=== PATIENT | female | born 1995 | race African-American/Black ===

== ENCOUNTER 2019-04-09 19:24 | Emergency (ER) | payer OTHER ==
--- NOTE | 2019-04-09 19:48 | PDOC ---
Rapid Medical Evaluation Chief Complaint: Sore Throat Time Seen by Provider: 04/09/19 19:45 Medical Evaluation: Allergies Allergy/AdvReac Type Severity Reaction Status Date / Time No Known Allergies Allergy Verified 10/16/16 18:15 04/09/19 19:46 This patient had a brief in-person evaluation cc: cold symptoms x 2 days non productive coughing sorethroat PE: NAD clear lungs bilaterally hoarseness orders ekg, chest xray This patient will proceed to to [facility] for further evaluation Discharge Disposition - Diagnosis URI (upper respiratory infection) - Referrals - Patient Instructions - Post Discharge Activity
[2019-04-09] MEDS ORDERED: ALBUTEROL SO4 2.5/IPRATROPIUM 0.5 INH SOL 3 ML VIAL.NEB. NEB ONE ×2 (19:49→20:07)
[2019-04-09 19:55] VITALS: BP 108/67; PULSE 63; TEMP 98.4; BMI 26.9
[2019-04-09 20:47] LABS: PH,URINE 6.5 (5.0-8.0); URINE APPEARANCE CLEAR; URINE BILIRUBIN NEGATIVE (NEGATIVE); URINE COLOR YELLOW; URINE GLUCOSE (UA) NEGATIVE (NEGATIVE); URINE KETONE NEGATIVE (NEGATIVE); URINE LEUK ESTERASE NEGATIVE (NEGATIVE); URINE NITRITE NEGATIVE (NEGATIVE); URINE PROTEIN NEGATIVE (NEGATIVE)
[2019-04-09 20:50] LABS: HCG,QUALITATIVE URINE Negative
[2019-04-09] MEDS ORDERED: AZITHROMYCIN 250 MG TABLET PO ONE (22:15)
[2019-04-09] MEDS ORDERED: AZITHROMYCIN 500 MG TABLET ONE (22:21)
--- NOTE | 2019-04-10 12:44 | EKG ---
Test Reason : Blood Pressure : / mmHG Vent. Rate : 057 BPM Atrial Rate : 057 BPM P-R Int : 130 ms QRS Dur : 088 ms QT Int : 420 ms P-R-T Axes : 062 075 061 degrees QTc Int : 408 ms POOR DATA QUALITY, INTERPRETATION MAY BE ADVERSELY AFFECTED SINUS BRADYCARDIA OTHERWISE NORMAL ECG WHEN COMPARED WITH ECG OF 03-JUN-2015 13:19, NONSPECIFIC T WAVE ABNORMALITY NO LONGER EVIDENT IN ANTERIOR LEADS Confirmed by Werner Rivera MD ([id number]) on 04/10/2019 12:44:13 PM Referred By: Confirmed By:Werner Rivera MD
== END 2019-04-09 23:02 | disposition home or self-care (01) ==
LOC: JERFT 19:24
PROC: 3E0F7GC Introduction of Other Therapeutic Substance into Respiratory Tract, Via Natural or Artificial Opening (ICD-10-PCS; principal; 2019-04-09)
DX: J06.9 Acute upper respiratory infection, unspecified (principal); N76.0 Acute vaginitis; B96.89 Other specified bacterial agents as the cause of diseases classified elsewhere
CPT/HCPCS: 36415; 71046-TC-FY; 81003; 84703; 87070; 87075; 87077; 87086; 87186; 87205; 87491; 87591; 87880; 93005; 93010; 99282-25

== ENCOUNTER 2023-02-13 02:50 | Inpatient (IN) | payer OTHER ==
[2023-02-13] MEDS: ELECTROLYTE-148 SOLN 1,000 ML IV SCH ×3 (04:50→22:00)
[2023-02-13] MEDS ORDERED: AMPICILLIN - 2 GM in SODIUM CHLORIDE 100 ML IVPB ONE (05:00)
[2023-02-13 05:17] VITALS: BMI 34.2
[2023-02-13 05:18] LABS: BASO % 0.3 % (0-2.0); EOS % 0.2 % (0-4.5); HEMATOCRIT 34.2 % (32.4-45.2); HEMOGLOBIN 12.2 GM/dL (10.7-15.3); LYMPH % 9.5 % (8-40); MCH 31.7 pg (25.7-33.7); MCHC 35.6 g/dl (32.0-36.0); MEAN PLT VOLUME 9.8 fl (7.5-11.1); MONO % 6.6 % (3.8-10.2); NEUT % 83.4 % (42.8-82.8); PLATELET COUNT 208 10^3/uL (134-434); RBC 3.85 M/mm3 (3.60-5.2); RDW 13.8 % (11.6-15.6)
[2023-02-13] MEDS ORDERED: AMPICILLIN SODIUM 2 GM VIAL ONE (05:25)
[2023-02-13 05:30] LABS: INR 0.97 (0.83-1.09); PROTHROMBIN TIME (PATIENT) 11.3 SEC (9.7-13.0)
[2023-02-13 05:36] LABS: CALCIUM 9.3 mg/dL (8.5-10.1)
[2023-02-13 05:37] LABS: ALBUMIN 2.7 g/dl (3.4-5.0); BLOOD UREA NITROGEN 5.6 mg/dL (7-18)
[2023-02-13 05:40] LABS: CREATININE 0.6 mg/dL (0.55-1.3)
[2023-02-13 05:41] LABS: BILIRUBIN,TOTAL 0.5 mg/dL (0.2-1); TOT PROT 6.6 g/dl (6.4-8.2)
[2023-02-13] MEDS ORDERED: PROMETHAZINE HCL 25 MG/1 ML VIAL IVPB ONE (06:00)
[2023-02-13] MEDS ORDERED: BUTORPHANOL TARTRATE 1 MG/ML VIAL IVPB ONE (06:00)
[2023-02-13 06:03] LABS: SYPHILIS W/ RPR CONF NON-REACTIVE (NONREACTIVE)
[2023-02-13 06:04] LABS: HEPATITIS B SURFACE AG MATERN NON-REACTIVE (NONREACTIVE)
[2023-02-13 06:32] LABS: HIV INTERPRETATION NEGATIVE (NEGATIVE)
[2023-02-13] MEDS ORDERED: BUTORPHANOL TARTRATE 2 MG/ML VIAL ONE (06:38)
[2023-02-13] MEDS ORDERED: PROMETHAZINE HCL 25 MG/1 ML VIAL ONE (06:38)
[2023-02-13] MEDS ORDERED: AMPICILLIN SODIUM 1 GM VIAL ONE ×4 (08:59→21:20)
[2023-02-13] MEDS: AMPICILLIN - 1 GM in SODIUM CHLORIDE 100 ML IVPB SCH ×4 (09:05→21:25)
[2023-02-13] MEDS ORDERED: FENTANYL/BUPIVACAINE/NS/PF - PCEA - 50 ML DISP.SYRIN EP ONE ×3 (13:24→23:04)
[2023-02-13] MEDS ORDERED: BUPIVACAINE HCL/PF 0.25% (2.5MG/ML) 10 ML VIAL ONE (13:31)
[2023-02-13] MEDS ORDERED: FENTANYL CITRATE/PF 50 MCG/ML VIAL ONE (13:31)
[2023-02-13] MEDS: FENTANYL/BUPIVACAINE/NS/PF - PCEA - 50 ML DISP.SYRIN EP SCH ×3 (13:45→23:05)
[2023-02-13] MEDS ORDERED: NALOXONE HCL 0.4 MG/ML VIAL IVPUSH PRN (13:58)
[2023-02-13] MEDS ORDERED: SODIUM CHLORIDE 100 ML IVPB ONE (21:21)
[2023-02-14] MEDS ORDERED: AMPICILLIN SODIUM 1 GM VIAL ONE ×3 (01:27→10:09)
[2023-02-14] MEDS: AMPICILLIN - 1 GM in SODIUM CHLORIDE 100 ML IVPB SCH ×3 (01:30→10:30)
[2023-02-14] MEDS ORDERED: FENTANYL/BUPIVACAINE/NS/PF - PCEA - 50 ML DISP.SYRIN EP ONE ×5 (02:44→16:23)
[2023-02-14] MEDS: FENTANYL/BUPIVACAINE/NS/PF - PCEA - 50 ML DISP.SYRIN EP SCH (02:45)
[2023-02-14] MEDS: ELECTROLYTE-148 SOLN 1,000 ML IV SCH (05:10)
[2023-02-14] MEDS ORDERED: FENTANYL CITRATE/PF 50 MCG/ML VIAL ONE (06:22)
[2023-02-14] MEDS ORDERED: BUPIVACAINE HCL/PF 0.25% (2.5MG/ML) 10 ML VIAL ONE (06:23)
[2023-02-14] MEDS ORDERED: ACETAMINOPHEN 1000 MG/100 ML BAG IVPB ONE (12:15)
[2023-02-14] MEDS ORDERED: DEXTROSE 5% IVPB ONE (13:00)
[2023-02-14] MEDS ORDERED: WATER IVPB ONE (13:00)
[2023-02-14] MEDS ORDERED: GENTAMICIN IVPB ONE (13:00)
[2023-02-14] MEDS ORDERED: OXYTOCIN 20 UNITS in 0.9% NS 20 UNIT/1,000 ML INFUS.BAG IV ONE (13:36)
[2023-02-14] MEDS ORDERED: OXYTOCIN 30 UNITS in 0.9% NS 30 UNIT/500 ML INFUS.BAG IVPB ONE (13:56)
[2023-02-14] MEDS: OXYTOCIN 30 UNITS in 0.9% NS 30 UNIT/500 ML INFUS.BAG IVPB SCH (14:00)
[2023-02-14] MEDS ORDERED: AMPICILLIN SODIUM 2 GM VIAL ONE ×2 (14:33→20:33)
[2023-02-14] MEDS: AMPICILLIN - 2 GM in SODIUM CHLORIDE 100 ML IVPB SCH ×2 (14:35→20:40)
[2023-02-14] MEDS ORDERED: OXYTOCIN 10 UNITS/ML VIAL ONE (21:13)
[2023-02-14] MEDS ORDERED: ACETAMINOPHEN 325 MG TABLET (FP) PO PRN (21:49)
[2023-02-14] MEDS ORDERED: WITCH HAZEL 50% (TUCKS) 40 PAD/JAR PAD TP PRN (21:49)
[2023-02-14] MEDS ORDERED: BISACODYL 10 MG SUPP.RECT RC PRN (21:49)
[2023-02-14] MEDS ORDERED: METHYLERGONOVINE MALEATE 0.2 MG/1 ML AMP IM PRN (21:49)
[2023-02-14] MEDS ORDERED: BENZOCAINE 28 GM HEMORRHOIDAL OINTMENT TP PRN (21:49)
[2023-02-14] MEDS ORDERED: BENZOCAINE 20% 57 GM BOTTLE TP PRN (21:49)
[2023-02-14] MEDS ORDERED: OXYTOCIN 20 UNITS in 0.9% NS 20 UNIT/1,000 ML INFUS.BAG IV SCH (22:00)
[2023-02-14 22:04] LABS: CORD BASE EXCESS -2.2 mmol/L (0-2); CORD HCO3 24.7 mmHg (20-29); CORD pH 7.312 (7.14-7.44)
[2023-02-14 22:07] LABS: CORD HCO3 25.9 mmHg (20-29); CORD PCO2 70.1 mmHg (30-78); CORD pH 7.185 (7.14-7.44)
[2023-02-14] MEDS ORDERED: oxyCODONE HCL 5 MG TABLET ONE (22:24)
[2023-02-14] MEDS: oxyCODONE HCL 5 MG TABLET PO PRN (22:26)
[2023-02-15] MEDS: IBUPROFEN 600 MG TABLET (FP) PO PRN ×4 (00:41→17:15)
[2023-02-15 07:47] LABS: BASO % 0.3 % (0-2.0); EOS % 0.4 % (0-4.5); HEMOGLOBIN 9.8 GM/dL (10.7-15.3); LYMPH % 8.7 % (8-40); MCH 31.9 pg (25.7-33.7); MCHC 35.1 g/dl (32.0-36.0); MEAN CELL VOLUME 90.9 fl (80-96); MEAN PLT VOLUME 9.5 fl (7.5-11.1); MONO % 12.5 % (3.8-10.2); NEUT % 78.1 % (42.8-82.8); PLATELET COUNT 175 10^3/uL (134-434); RBC 3.08 M/mm3 (3.60-5.2); RDW 13.4 % (11.6-15.6); WHITE BLOOD COUNT 19.2 K/mm3 (4.0-10.0)
[2023-02-15] MEDS: AMPICILLIN - 2 GM in SODIUM CHLORIDE 100 ML IVPB SCH ×2 (09:00→17:17)
[2023-02-15] MEDS: PRENATAL VITAMINS W/ FOLIC ACID TABLET (FP) PO SCH (09:59)
[2023-02-15] MEDS: OXYTOCIN 30 UNITS in 0.9% NS 30 UNIT/500 ML INFUS.BAG IVPB SCH (17:17)
[2023-02-15] MEDS: oxyCODONE HCL 5 MG TABLET PO PRN (19:54)
[2023-02-15] MEDS ORDERED: SENNOSIDES/DOCUSATE COMBO (SENNA PLUS) TABLET (UD) PO PRN (22:00)
[2023-02-16] MEDS: IBUPROFEN 600 MG TABLET (FP) PO PRN ×3 (01:25→14:52)
[2023-02-16] MEDS: PRENATAL VITAMINS W/ FOLIC ACID TABLET (FP) PO SCH (09:09)
[2023-02-16] MEDS: AMPICILLIN - 2 GM in SODIUM CHLORIDE 100 ML IVPB SCH ×2 (09:10→17:06)
[2023-02-16 10:25] VITALS: BP 109/66; PULSE 89; RESP 18; TEMP 97.8
== END 2023-02-16 17:30 | disposition home or self-care (01) | DRG 560 ==
LOC: JDEL 02:50 → JLDR 04:20 → J3W 02-15 00:18
PROVIDERS: ADMIT Obstetrics & Gynecology; ATTEND Obstetrics & Gynecology
PROC: 0W8NXZZ Division of Female Perineum, External Approach (ICD-10-PCS; principal; 2023-02-14)
PROC: 10E0XZZ Delivery of Products of Conception, External Approach (ICD-10-PCS; 2023-02-14)
DX: O41.1230 Chorioamnionitis, third trimester, not applicable or unspecified (principal); O99.02 Anemia complicating childbirth; D64.9 Anemia, unspecified; O62.0 Primary inadequate contractions; Z3A.40 40 weeks gestation of pregnancy; Z37.0 Single live birth
CPT/HCPCS: 36415; 36600; 59025; 80053; 82803; 85025; 85610; 85730; 86780; 86850; 86900; 86901; 87340; 87389; C9803-CS; U0003; U0005